=== PATIENT | female | born 1950 | race Caucasian/White ===

== ENCOUNTER 2022-08-17 11:05 | Day surgery (SDC) | payer OTHER ==
[~2022-08-17] VITALS: Ht 157.5 cm; Wt 50.3 kg
[~2022-08-17 11:05] MED LIST: ceFAZolin SODIUM 2 GM in D5W 100 ML IV ONE
[2022-08-17] MEDS ORDERED: SUGAMMADEX SODIUM 200 MG/2 ML VIAL IV ONE (13:13)
[2022-08-17] MEDS ORDERED: KETOROLAC TROMETHAMINE 30 MG VIAL ONE (13:13)
[2022-08-17] MEDS ORDERED: METOPROLOL TARTRATE 5 MG/5 ML VIAL ONE (13:13)
[2022-08-17] MEDS ORDERED: BUPIVACAINE /PF 0.5% 30 ML VIAL ONE (13:13)
[2022-08-17] MEDS ORDERED: PROPOFOL 200MG/ 20ML VIAL (DIPRIVAN) IV ONE (13:13)
[2022-08-17] MEDS ORDERED: LIDOCAINE 2%, 20 ML MDV ONE (13:13)
[2022-08-17] MEDS ORDERED: fentaNYL CITRATE/PF 100 MCG/2 ML AMP ONE (13:13)
[2022-08-17] MEDS ORDERED: MIDAZOLAM HCL 2 MG/2 ML VIAL (VERSED) ONE (13:13)
[2022-08-17] MEDS ORDERED: LR 1,000 ML IV.SOLN IV ONE (13:13)
[2022-08-17] MEDS ORDERED: ONDANSETRON HCL 4 MG/2 ML VIAL ONE (13:13)
[2022-08-17] MEDS ORDERED: ROCURONIUM BROMIDE 10 MG/ML (ZEMURON) ONE (13:13)
[2022-08-17] MEDS ORDERED: NS IRRIG SOLN 1000 ML IR ONE (13:13)
[2022-08-17] MEDS ORDERED: DEXAMETHASONE SOD PHOSPHATE 4 MG/ML VIAL ONE (13:13)
[2022-08-17] MEDS ORDERED: DESFLURANE 15 MIN GAS INH ONE (13:13)
[2022-08-17] MEDS ORDERED: NORMAL SALINE 10 ML VIAL ONE (13:13)
[2022-08-17] MEDS ORDERED: ACETAMINOPHEN I.V. 1000 MG 100 ML IV ONE (13:53)
[2022-08-17] MEDS ORDERED: HYDROmorphone 1 MG/ML INJ. CARTRIDGE IVP PRN ×2 (14:00)
[2022-08-17] MEDS ORDERED: LR 1,000 ML IV SCH (14:00)
[2022-08-17] MEDS ORDERED: MEPERIDINE HCL/PF 25 MG/ML DISP.SYRIN IVP PRN (14:00)
[2022-08-17] MEDS ORDERED: METOCLOPRAMIDE HCL 10 MG/2 ML VIAL IVP PRN (14:00)
[2022-08-17] MEDS ORDERED: BUPIVACAINE LIPOSOME/PF 266 MG/20 ML VIAL INFIL ONE (15:36)
[2022-08-17] MEDS ORDERED: MORPHINE 4 MG INJ. 4 MG/ML VIAL IVP PRN (16:45)
[2022-08-17] MEDS ORDERED: ONDANSETRON HCL 4 MG/2 ML VIAL IVP PRN (16:45)
[2022-08-17] MEDS ORDERED: ZOLPIDEM TARTRATE 5 MG TABLET PO PRN ×2 (16:45→17:29)
[2022-08-17] MEDS ORDERED: HYDROcodone/ACETAMIN 5-325 MG TAB (NORCO/ VICODIN) PO PRN (16:45)
[2022-08-17 17:17] VITALS: BP_SYST 130
[2022-08-17 17:23] VITALS: BP_SYST 130
[2022-08-17] MEDS: CEFAZOLIN 1 GM IVPB PREMIX 50 ML IV SCH (18:21)
[2022-08-17] MEDS: LR 1,000 ML IV SCH (18:21)
[2022-08-17] MEDS ORDERED: traMADol HCL HCL 50 MG TABLET (ULTRAM) PO PRN (18:45)
[2022-08-17 20:00] VITALS: BP_SYST 122
[2022-08-17] MEDS: DOCUSATE SODIUM 100 MG CAPSULE PO SCH (20:44)
[2022-08-18 02:03] VITALS: BP_SYST 113
[2022-08-18] MEDS: LR 1,000 ML IV SCH (03:08)
[2022-08-18] MEDS: CEFAZOLIN 1 GM IVPB PREMIX 50 ML IV SCH (03:09)
[2022-08-18 08:00] VITALS: BP_SYST 126
[2022-08-18] MEDS: DOCUSATE SODIUM 100 MG CAPSULE PO SCH (09:14)
[2022-08-18 10:32] VITALS: BP_SYST 126
== END 2022-08-18 11:15 | disposition home or self-care (01) ==
LOC: SDS 11:05 → SMU 11:06 → SDS 15:00 → SMU 16:37 → SDS 08-18 11:15
PROVIDERS: ATTEND Surgery
DX: K43.2 Incisional hernia without obstruction or gangrene (principal); K21.9 Gastro-esophageal reflux disease without esophagitis
CPT/HCPCS: 87081; 49595; J3490 ×3; C9290; J0690; J1100; J1885; J2001; J3465; J2405; J2704; J3010; J7060; J7120; J0131; 88302; C1781